=== PATIENT | female | born 1960 | race Caucasian/White ===

== ENCOUNTER 2020-06-06 09:49 | Inpatient (IN) | payer BC, SELFPAY ==
[~2020-06-06] VITALS: Ht 160.8 cm; Wt 87.5 kg
[2020-06-06 09:58] VITALS: BP 135/107
[2020-06-06] MEDS ORDERED: NACL 0.9% 1,000 ML IV SCH (10:58)
[2020-06-06] MEDS ORDERED: KETOROLAC 30 MG/ML VIAL IVP ONE (11:00)
[2020-06-06] MEDS ORDERED: ONDANSETRON 4 MG/2 ML VIAL IVP ONE (11:00)
[2020-06-06 12:03] LABS: BASOPHILS # (AUTO) 0.1 K/uL (0.00-0.22); BASOPHILS % (AUTO) 0.6 % (0.0-2.0); HEMATOCRIT 40.1 % (36-48); HEMOGLOBIN 13.5 g/dL (12.0-16.0); LYMPHOCYTES # (AUTO) 1.1 K/uL (2.5-16.5); LYMPHOCYTES % (AUTO) 6.3 % (20.5-51.1); MEAN CORPUSCULAR HEMOGLOBIN 28 pg (27-31); MEAN CORPUSCULAR HGB CONC 34 g/dL (33-37); MEAN CORPUSCULAR VOLUME 83.9 fL (80-94); MONOCYTES # (AUTO) 0.8 K/uL (0.8-1.0); MONOCYTES % (AUTO) 4.6 % (1.7-9.3); NEUTROPHILS # (AUTO) 15.2 K/uL (1.8-7.7); NEUTROPHILS % (AUTO) 88.5 % (42.2-75.2); PLATELET COUNT (AUTO) 233 K/uL (140-450); RED BLOOD CELL COUNT(AUTO) 4.78 MIL/uL (4.20-5.40); RED CELL DISTRIBUTION WIDTH 14.6 % (11.6-13.7); WHITE BLOOD COUNT (AUTO) 17.2 K/uL (4.8-10.8)
[2020-06-06 12:15] LABS: ALBUMIN 3.3 g/dL (3.4-5.0); ANION GAP 12.1 (8-16); CREATININE 1.1 mg/dL (0.6-1.3); POTASSIUM 3.1 mmol/L (3.5-5.1); TOTAL BILIRUBIN 0.8 mg/dL (0.0-1.0)
[2020-06-06] MEDS ORDERED: PIPERACILLIN/TAZOBACTAM 3.375 GM in DEXTROSE 5% 50 ML IV ONE (13:40)
[2020-06-06] MEDS ORDERED: PIPERACILLIN/TAZOBACTAM 3.375 GM VIAL IV ONE ×2 (13:44→22:05)
[2020-06-06] MEDS ORDERED: ONDANSETRON 4 MG/2 ML VIAL IM/IVP PRN (14:15)
[2020-06-06] MEDS ORDERED: HYDROcodone/APAP 7.5/325 MG 1 TAB PO PRN (14:15)
[2020-06-06] MEDS ORDERED: DOCUSATE SODIUM 100 MG GELCAP PO PRN (14:15)
[2020-06-06] MEDS ORDERED: POTASSIUM CHLORIDE 10 MEQ TABER PO PRN ×2 (14:15→15:14)
[2020-06-06] MEDS ORDERED: MORPHINE SULFATE 4 MG/ML SYR IVP PRN (14:30)
[2020-06-06] MEDS: NACL 0.9% 1,000 ML IV SCH (15:10)
[2020-06-06 15:38] LABS: PROTHROMBIN TIME 10.2 secs (10.8-13.4)
[2020-06-06 15:41] LABS: CHOL/HDL RATIO 1.3 (1-4.5); FREE T4 (FREE THYROXINE) 0.76 ng/dL (0.76-1.46); MAGNESIUM 1.7 mg/dL (1.8-2.4); PHOSPHORUS 2.6 mg/dL (2.5-4.9); THYROID STIMULATING HORMONE 0.97 uIU/mL (0.34-3.74)
[2020-06-06 15:45] VITALS: BP 124/64
[2020-06-06] MEDS ORDERED: ONDANSETRON 4 MG/2 ML VIAL IVP PRN (19:50)
[2020-06-06] MEDS ORDERED: LIDOCAINE 1% 500 MG/50 ML VIAL ONE (19:50)
[2020-06-06] MEDS ORDERED: BUPIVACAINE-MPF 0.25% 30 ML VIAL INJ ONE (19:50)
[2020-06-06] MEDS ORDERED: HYDROmorphone 1 MG/ML AMP IVP PRN (19:50)
[2020-06-06] MEDS ORDERED: ONDANSETRON 4 MG/2 ML VIAL ONE (19:51)
[2020-06-06] MEDS ORDERED: ROCURONIUM 50 MG/5 ML VIAL IV ONE (19:51)
[2020-06-06] MEDS ORDERED: DESFLURANE 240 ML BTL INH ONE (19:51)
[2020-06-06] MEDS ORDERED: fentaNYL citrate 0.05 MG/ML VIAL ONE (19:51)
[2020-06-06] MEDS ORDERED: GLYCOPYRROLATE 0.2 MG/ML VIAL ONE (19:51)
[2020-06-06] MEDS ORDERED: NEOSTIGMINE 1:1000 10 MG/10 ML VIAL ONE (19:51)
[2020-06-06] MEDS ORDERED: PROPOFOL 200 MG/20 ML VIAL IV ONE (19:51)
[2020-06-06] MEDS ORDERED: SUCCINYLCHOLINE CHLORIDE 200 MG/10 ML VIAL IVP ONE (19:51)
[2020-06-06] MEDS ORDERED: DEXAMETHASONE 4 MG/ML VIAL ONE (19:51)
[2020-06-06 22:00] VITALS: BP 92/55
[2020-06-06] MEDS: PIPERACILLIN/TAZOBACTAM 3.375 GM in DEXTROSE 5% 50 ML IV SCH (22:00)
[2020-06-07] MEDS ORDERED: PIPERACILLIN/TAZOBACTAM 3.375 GM VIAL IV ONE (05:21)
[2020-06-07] MEDS: PIPERACILLIN/TAZOBACTAM 3.375 GM in DEXTROSE 5% 50 ML IV SCH ×3 (05:31→22:43)
[2020-06-07 06:17] LABS: T4 (THYROXINE) 8.4 ug/dL (4.5-12.0)
[2020-06-07 06:25] LABS: BASOPHILS % (AUTO) 0.1 % (0.0-2.0); HEMATOCRIT 35.1 % (36-48); HEMOGLOBIN 11.6 g/dL (12.0-16.0); LYMPHOCYTES % (AUTO) 6.5 % (20.5-51.1); MEAN CORPUSCULAR HEMOGLOBIN 28 pg (27-31); MEAN CORPUSCULAR HGB CONC 33 g/dL (33-37); MEAN CORPUSCULAR VOLUME 85.4 fL (80-94); MONOCYTES # (AUTO) 0.7 K/uL (0.8-1.0); MONOCYTES % (AUTO) 4.6 % (1.7-9.3); NEUTROPHILS # (AUTO) 13.8 K/uL (1.8-7.7); NEUTROPHILS % (AUTO) 88.8 % (42.2-75.2); PLATELET COUNT (AUTO) 207 K/uL (140-450); RED BLOOD CELL COUNT(AUTO) 4.11 MIL/uL (4.20-5.40); RED CELL DISTRIBUTION WIDTH 14.5 % (11.6-13.7); WHITE BLOOD COUNT (AUTO) 15.5 K/uL (4.8-10.8)
[2020-06-07 06:51] LABS: CARBON DIOXIDE 24.8 mmol/L (21-32); CREATININE 0.8 mg/dL (0.6-1.3); POTASSIUM 3.8 mmol/L (3.5-5.1)
[2020-06-07 07:14] LABS: MAGNESIUM 1.7 mg/dL (1.8-2.4); PHOSPHORUS 3.2 mg/dL (2.5-4.9)
[2020-06-07 08:00] VITALS: BP 98/51
[2020-06-07] MEDS: hydroCHLOROthiazide 25 MG TAB PO SCH (09:00)
[2020-06-07] MEDS: LOSARTAN 50 MG TAB PO SCH (09:00)
[2020-06-07] MEDS: ENOXAPARIN 40 MG/0.4 ML SYR SUBQ SCH (09:14)
[2020-06-07] MEDS ORDERED: MAGNESIUM OXIDE 400 MG TAB PO SCH (10:00)
[2020-06-07] MEDS: ACETAMINOPHEN 325 MG TAB PO PRN (10:13)
[2020-06-07 11:59] LABS: APPEARANCE,URINE CLOUDY (CLEAR); BILIRUBIN,URINE 1+ (NEGATIVE); BLOOD, URINE TRACE-I (NEGATIVE); COLOR,URINE AMBER (YELLOW); LEUKOCYTE ESTERASE ,URINE TRACE (NEGATIVE); NITRITE, URINE NEGATIVE (NEGATIVE); PH,URINE 5.5 (5.0-9.0); UGLUCOSE NEGATIVE (NEGATIVE)
[2020-06-07 12:39] LABS: URINE AMORPHOUS URATE 1+ /HPF (None Seen); WBC,URINE 0-5 /HPF (0-5); YEAST,URINE Rare /HPF (None Seen)
[2020-06-07] MEDS: NACL 0.9% 1,000 ML IV SCH ×2 (14:30→23:35)
[2020-06-07 16:00] VITALS: BP 105/61
[2020-06-08] VITALS: BP 111/59
[2020-06-08] MEDS: PIPERACILLIN/TAZOBACTAM 3.375 GM in DEXTROSE 5% 50 ML IV SCH (05:50)
[2020-06-08] MEDS: ACETAMINOPHEN 325 MG TAB PO PRN (06:21)
[2020-06-08 06:22] LABS: HEMATOCRIT 32.5 % (36-48); HEMOGLOBIN 10.9 g/dL (12.0-16.0); LYMPHOCYTES # (AUTO) 1.9 K/uL (2.5-16.5); LYMPHOCYTES % (AUTO) 20.9 % (20.5-51.1); MEAN CORPUSCULAR HEMOGLOBIN 29 pg (27-31); MEAN CORPUSCULAR HGB CONC 33 g/dL (33-37); MEAN CORPUSCULAR VOLUME 85.7 fL (80-94); MONOCYTES # (AUTO) 0.6 K/uL (0.8-1.0); MONOCYTES % (AUTO) 6.8 % (1.7-9.3); NEUTROPHILS # (AUTO) 6.7 K/uL (1.8-7.7); NEUTROPHILS % (AUTO) 72.3 % (42.2-75.2); PLATELET COUNT (AUTO) 215 K/uL (140-450); RED CELL DISTRIBUTION WIDTH 14.4 % (11.6-13.7); WHITE BLOOD COUNT (AUTO) 9.3 K/uL (4.8-10.8)
[2020-06-08 06:35] LABS: ANION GAP 10.8 (8-16); CARBON DIOXIDE 26.9 mmol/L (21-32); CREATININE 0.8 mg/dL (0.6-1.3); POTASSIUM 3.7 mmol/L (3.5-5.1)
[2020-06-08 06:40] LABS: MAGNESIUM 1.9 mg/dL (1.8-2.4); PHOSPHORUS 2.4 mg/dL (2.5-4.9)
[2020-06-08 08:00] VITALS: BP 107/54
[2020-06-08] MEDS: hydroCHLOROthiazide 25 MG TAB PO SCH (09:00)
[2020-06-08] MEDS: LOSARTAN 50 MG TAB PO SCH (09:19)
[2020-06-08] MEDS: ENOXAPARIN 40 MG/0.4 ML SYR SUBQ SCH (09:20)
[2020-06-08] MEDS ORDERED: LACT10CA PO (10:55)
[2020-06-08] MEDS ORDERED: METR500T1 PO (10:55)
[2020-06-08] MEDS ORDERED: CIPR250T3 PO (10:55)
[2020-06-08 12:15] VITALS: BP 131/87
== END 2020-06-08 13:35 | disposition home or self-care (01) | DRG 340 ==
LOC: MED 09:49 → MTU 14:15
PROVIDERS: ADMIT Emergency Medicine; ATTEND Emergency Medicine
PROC: 0W9J40Z Drainage of Pelvic Cavity with Drainage Device, Percutaneous Endoscopic Approach (ICD-10-PCS; 2020-06-06)
PROC: 0DTJ4ZZ Resection of Appendix, Percutaneous Endoscopic Approach (ICD-10-PCS; principal; 2020-06-06 19:40)
DX: K35.33 Acute appendicitis with perforation, localized peritonitis, and gangrene, with abscess (principal); I10 Essential (primary) hypertension; Z20.828 Contact with and (suspected) exposure to other viral communicable diseases; E87.6 Hypokalemia; E83.42 Hypomagnesemia; Z90.710 Acquired absence of both cervix and uterus; Z88.5 Allergy status to narcotic agent; Z90.49 Acquired absence of other specified parts of digestive tract
CPT/HCPCS: 36415; 80048; 80053; 81001; 82374; 83036; 83605; 83690; 83735; 84100; 84436; 84439; 84443; 84479; 85025; 85610; 85730; 86886; 86900; 86901; 87040; 87081; 96361; 96365; 96375; 99285; J0330; J1100; J1170; J1650; J1885; J2001; J2405; J2543; J2704; J2710; J3010; J3490; J7030; J7060; Q9967